=== PATIENT | female | born 1930 | race Caucasian/White ===

== ENCOUNTER → 2016-12-02 | Outpatient (CLI) | payer OTHER ==
[~2016-12-02] MED LIST: ACET325T96 PO; AMLO-114 PO; ASPI-461 PO; ASPI81TA28 PO; CARB1SOL OPR; CRFUDL PO; DOCU-94 PO; FERR1TAB13 PO; FERR1TAB24 PO; FERR325T5 PO; LEVO125T72 PO; LISI40TA PO; LSN20 PO; MIRT15TA PO; MIRT1TAB27 PO; MOML PO; PANT40TA PO; POLY335019 PO; POLY99.02 OPR; POTA10CA28 PO; PRT40 PO; PRVC40 PO; PSYL55.43 PO; SACC250C PO; SENN-61 PO; SENN1TAB65 PO; VENL75TA4 PO; VNCLRX PO; VNCS125 PO; [UNRECOGNIZED DRUG - CODE] PO
--- NOTE | 2016-12-09 11:27 | CODING QUERY NO DIAGNOSIS ---
TREATMENT RENDERED WITHOUT A DIAGNOSIS : 1930 To promote full compliance with coding requirements relating to patient care, physician participation is requested in all cases of label coder uncertainty. Please assist us with providing a diagnosis/symptom for the test(s) below: A diagnosis/symptom was not documented on your Order. A valid diagnosis/symptom is required to bill all insurances. Please remember that we are unable to code a diagnosis of rule out, probable, possible, questionable, or suspected. Tests that require a diagnosis: * INFLUENZA VIR A OR B DOS: 12/02/16 DIAGNOSIS: Provider Signature: Date: Thank you Vanessa Saldaña Health Information Management Once completed, please kindly fax back to [phone] For questions please call [phone]
== END | disposition home or self-care (01) ==
LOC: C.LABOUTLO 11:54
PROVIDERS: ATTEND Internal Medicine Critical Care Medicine
DX: J11.1 Influenza due to unidentified influenza virus with other respiratory manifestations (principal)

== ENCOUNTER 2017-04-30 01:52 | Emergency (ER) | payer OTHER ==
[~2017-04-30] VITALS: Ht 170.2 cm; Wt 74.7 kg
[~2017-04-30 01:52] MED LIST changes: -ACET325T96 PO; -AMLO-114 PO; -ASPI81TA28 PO; -CARB1SOL OPR; -DOCU-94 PO; -FERR1TAB13 PO; -FERR325T5 PO; -LISI40TA PO; -MIRT1TAB27 PO; -MOML PO; -PANT40TA PO; -POLY335019 PO; -POLY99.02 OPR; -SENN-61 PO; -SENN1TAB65 PO; -VNCLRX PO; -[UNRECOGNIZED DRUG - CODE] PO
[2017-04-30 01:55] VITALS: TEMP 36.5; Ht 170.2 cm; Wt 74.7 kg
[2017-04-30] MEDS ORDERED: LIDOCAINE/EPINEPH/TETRACAINE 1 EA SYR ONE ×2 (02:18→02:19)
--- NOTE | 2017-04-30 02:20 | EMERGENCY ROOM VISIT NOTE ---
History Report prepared by Yvrose: Dipak Tavarez Under the Supervision of: Dr. Miroslava Gamboa M.D. First contact with patient: :58 Chief Complaint: FALL Stated Complaint: FALL History of Present Illness The patient is an 86 year old female who presents to the Emergency Room with an acute fall that occurred at approximately 0130 this morning. The patient resides at [facility] with her . The patient's son received a call that she fell around 0130 this morning. The cause of the fall is unknown at this time. The patient has a skin tear on the right griffin from the fall. She does not believe that she hit her head and did not lose consciousness. The patient is not on blood thinners other than baby aspirin. Source of History: patient, family Onset: 0130 this morning Position: other (global) Quality: other (fall) Timing: other (acute) Associated Symptoms: No LOC Review of Systems See HPI for pertinent positives & negatives. A total of 10 systems reviewed and were otherwise negative. Past Medical & Surgical Medical Problems: (1) Clostridium difficile colitis (2) GI bleed Family History Patient reports no known family medical history. Social History Smoking Status: Former Smoker Alcohol Use: none Drug Use: none Marital Status: Housing Status: lives with significant other, senior care Occupation Status: retired Current/Historical Medications Scheduled Amlodipine (Norvasc), 10 MG PO QPM Aspirin (Aspirin), 81 MG PO QAM Carboxymethylcellulose Sodium (Refresh), 1 DROP OPR TID Ferrous Sulfate (Kp Ferrous Sulfate), 325 MG PO QDB Levothyroxine Sodium (Synthroid), 125 MCG PO QAM Lisinopril (Zestril), 40 MG PO DAILY Mirtazapine (Remeron), 15 MG PO HS Pantoprazole (Protonix), 40 MG PO BID Polyethylene Glycol 3350 (Miralax), 17 GM PO DAILY Polyvinyl Alcohol (Liquitears), 1 DROP OPR BID Pravastatin Sod (Pravastatin Sodium), 40 MG PO DAILY Probiotic Product (Ana Paula-Bid Probiotic), 1 TAB PO BID Senna (Senokot), 8.6 MG PO BID Vancomycin HCl (Vancomycin HCl), 5 ML PO Q2D Venlafaxine Hcl (Effexor), 150 MG PO QAM Allergies Coded Allergies: No Known Allergies (Unverified , 08/19/15) PER [facility] Physical Exam Vital Signs Date Time Temp Pulse Resp B/P (MAP) Pulse Ox O2 Delivery O2 Flow Rate FiO2 04/30/17 04:58 94 20 152/94 95 04/30/17 03:29 85 16 162/93 95 Room Air 04/30/17 01:55 36.5 81 16 170/112 97 Room Air Physical Exam Vital signs reviewed. General: Well-appearing female, in no significant distress. HEENT: No scleral icterus, PERRLA, neck supple. Head is atraumatic. Cardiovascular: Regular rate and rhythm, no extra sounds. Pulmonary: Clear to auscultation bilaterally, normal work of breathing. Abdomen: Soft, nontender, nondistended, positive bowel sounds. Musculoskeletal: There is a 10 cm U-shaped skin tear to the right griffin with surrounding ecchymosis, no active bleeding, full range of motion of the bilateral lower extremities. Neurologic: Patient awake alert and answers most questions however is pleasantly confused. This is her baseline. Skin: Warm, dry, no rash Medical Decision & Procedures ER Provider Diagnostic Interpretation: X-ray results as stated below per interpretation by me. Tib/Fib 2 Views Right No bony fracture, degenerative changes. Radiology results as stated below per my review and radiologist interpretation: CT Head: No intracranial hemorrhage, mass effect or calvarial fracture. Ventricles are unchanged in size and remain midline. Chronic and involutional changes again noted. Visualized paranasal sinuses, mastoid and orbits are within limits. Radiologist: Bc Cueto MD, from [facility][Note 3]. Medications Administered Medications (Trade) Dose Ordered Sig/Ned Route Start Time Stop Time Status Last Admin Dose Admin Tetracaine/ Epinephrine/ Lidocaine (L.e.t. Gel 4%/ 1:100/0.5%) 1 ea STK-MED ONCE .ROUTE 04/30/17 02:18 04/30/17 02:19 DC 04/30/17 02:29 1 EA Tetracaine/ Epinephrine/ Lidocaine (L.e.t. Gel 4%/ 1:100/0.5%) 1 ea STK-MED ONCE .ROUTE 04/30/17 02:19 04/30/17 02:20 DC 04/30/17 02:29 1 EA Procedure Laceration Repair The wound on her right griffin was anesthetized with LET gel. Wound was irrigated. Approximated with Dermabond and steri-strips. Dry dressing applied. The patient' s tetanus is up to date. ED Course 0212: Past medical records reviewed. The patient was evaluated in room A10. A complete history and physical examination was performed. 0400: Reassessed the patient. Discussed the discharge instructions with her. She verbalized understanding. The patient will be discharged when transportation arrives. Medical Decision Differential Diagnosis: Intracranial injury, cervical spine injury, intrathoracic injury, intra- abdominal injury, musculoskeletal injury. Blood Pressure Screening: Patient was found to have a slightly elevated blood pressure due to circumstances. I do not believe that the patient requires hypertension monitoring. Medication Reconciliation: I attest that I have personally reviewed the patient' s current medication list. This patient was evaluated and appeared to be in no significant distress. Patient's physical examination is significant for a large skin tear to the right lower extremity. An x-ray was obtained at the family's request, there is no visualized foreign body or fracture. Head CT is negative for acute intracranial abnormality. Patient's tetanus status is up-to-date. The wound was irrigated with normal saline solution and approximated with Dermabond and Steri-Strips. Please see my procedure note above. The patient's was given wound care instructions. They will return to the nursing facility for further care and see their primary care physician this week for reevaluation. They will return to the ER for worsening of symptoms or any medical concerns. Impression Primary Impression: Skin tear of right lower leg without complication Scribe Attestation The scribe's documentation has been prepared under my direction and personally reviewed by me in its entirety. I confirm that the note above accurately reflects all work, treatment, procedures, and medical decision making performed by me. Departure Information Dispostion Home / Self-Care Referrals [facility] (PCP) Forms HOME CARE DOCUMENTATION FORM, IMPORTANT VISIT INFORMATION Patient Instructions My [facility] Additional Instructions Diagnosis: Right leg skin tear DO NOT apply ointments Read DermaBond handout. No water on the area for 8 hrs then no soaking until the glue falls off. The glue will fall off on its own - do not pick at it. Once the glue falls off use antibiotic ointment on the area until fully healed. Ice and elevate for swelling and pain. Ibuprofen 600 mg and Tylenol 650 mg every 6 hrs for pain (Maximum 3000 mg Tylenol in 24 hr period). Return for any signs of infection (increasing redness, swelling, drainage, fever). Keep covered when in sun until fully healed then SPF 50 or higher for one year. Keep wound covered. Have recheck by PCP this week for reevaluation. Return to the ED for worsening of symptoms or any medical concerns. Problem Qualifiers Primary Impression: Skin tear of right lower leg without complication Encounter type: initial encounter Qualified Codes: S81.811A - Laceration without foreign body, right lower leg, initial encounter
[2017-04-30] MEDS ORDERED: AMLO-114 PO (03:26)
[2017-04-30] MEDS ORDERED: FERR1TAB13 PO (03:29)
[2017-04-30] MEDS ORDERED: LISI40TA PO (03:31)
[2017-04-30] MEDS ORDERED: POLY99.02 OPR (03:31)
[2017-04-30] MEDS ORDERED: PANT40TA PO (03:33)
[2017-04-30] MEDS ORDERED: POLY335019 PO (03:35)
[2017-04-30] MEDS ORDERED: CARB1SOL OPR (03:37)
[2017-04-30] MEDS ORDERED: [UNRECOGNIZED DRUG - CODE] PO (03:39)
[2017-04-30] MEDS ORDERED: SENN-61 PO (03:40)
[2017-04-30] MEDS ORDERED: VNCLRX PO (03:43)
[2017-04-30 04:58] VITALS: BP 152/94; PULSE 94; O2SAT 95
--- NOTE | 2017-04-30 06:11 | DIAGNOSTIC IMAGING REPORT ---
HEAD CT NONCONTRAST CT DOSE: 614.27 mGy.cm HISTORY: Trauma. Mental status change. fall TECHNIQUE: Multiaxial CT images of the head were performed without the use of intravenous contrast. Comparison: 01/24/2016 Findings: The paranasal sinuses and mastoid air cells are clear. Mild chronic ventricular prominence. Generalized atrophy and considerable chronic small vessel change. No acute intracranial hemorrhage. Impression: Chronic and age-related change. No acute process. Electronically signed by: Celestine Calvin M.D. 04/30/2017 6:10 AM Dictated Date/Time: 04/30/2017 6:09 AM
--- NOTE | 2017-04-30 06:14 | DIAGNOSTIC IMAGING REPORT ---
RIGHT TIBIA/FIBULA 2 VIEWS ROUTINE CLINICAL HISTORY: R tib fib trauma Right COMPARISON: None. DISCUSSION: Total right knee replacement. Pretibial soft tissue edema. No acute bony abnormality. Mild generalized soft tissue edema. IMPRESSION: Focal soft tissue disruption anterior to the mid tibia. No acute bony abnormality. Electronically signed by: Celestine Calvin M.D. 04/30/2017 6:13 AM Dictated Date/Time: 04/30/2017 6:12 AM
== END 2017-04-30 05:00 | disposition home or self-care (01) ==
LOC: EDBD 01:52 → C.EDA 01:53
DX: S81.801A Unspecified open wound, right lower leg, initial encounter (principal); W19.XXXA Unspecified fall, initial encounter; Z87.19 Personal history of other diseases of the digestive system; Z86.19 Personal history of other infectious and parasitic diseases; Z87.891 Personal history of nicotine dependence; Z79.82 Long term (current) use of aspirin; Z79.899 Other long term (current) drug therapy

== ENCOUNTER → 2017-06-15 | Outpatient (CLI) | payer OTHER ==
[~2017-06-15] MED LIST changes: +ACET325T96 PO; +AMLO-114 PO; +ASPI81TA28 PO; +CARB1SOL OPR; -CRFUDL PO; +DOCU-94 PO; +FERR1TAB13 PO; -FERR1TAB24 PO; +FERR325T5 PO; +LISI40TA PO; -LSN20 PO; +MIRT1TAB27 PO; +MOML PO; +PANT40TA PO; +POLY335019 PO; +POLY99.02 OPR; -POTA10CA28 PO; -PRT40 PO; -PSYL55.43 PO; -SACC250C PO; +SENN-61 PO; +SENN1TAB65 PO; +VNCLRX PO; -VNCS125 PO; +[UNRECOGNIZED DRUG - CODE] PO
--- NOTE | 2017-06-15 14:04 | MAMMOGRAPHY REPORT ---
BILATERAL DIGITAL DIAGNOSTIC MAMMOGRAM TOMOSYNTHESIS WITH CAD AND TARGETED BILATERAL ULTRASOUND: 06/15 CLINICAL HISTORY: Per the patient's [id number], a nurse at the patient's [facility] felt a lef t breast lump. The patient does not clearly feel a lump. TECHNIQUE: Breast tomosynthesis in addition to standard 2D mammography was performed. Current study was also evaluated with a Computer Aided Detection (CAD) system. Bilateral CC and MLO 2-D and tomosy nthesis images were obtained. COMPARISON: Comparison is made to exam dated: 05/03/2008 mammogram. BREAST COMPOSITION: There are scattered areas of fibroglandular density in both breasts. FINDINGS: Mammograms of the right breast demonstrate a spiculated mass in the right medial breast at approximately 2 to 3:00, which measures approximately 1.4 x 1.9 cm. In the left breast, there is ar eola skin thickening as well as a focal asymmetry and associated architectural distortion in the left subareolar breast. The asymmetry is difficult to measure but measures at least 2.2 x 1.1 cm in size . Additionally, there is a possible round partially circumscribed and partially obscured 6 mm mass i n the left subareolar breast. The remainder of both breast imaging no suspicious masses, calcificati ons, or areas of architectural distortion. Bilateral benign-appearing calcifications are not signifi cantly changed. Morphologically normal intramammary lymph nodes in the right breast are stable. Targeted ultrasound was performed of the area of the mammographic mass in the right breast. In the r ight breast at 2:00, 6 cm from the nipple, there is an ill-defined irregular hypoechoic mass with a s urrounding hyperechoic halo, measuring approximately 1.3 x 0.9 x 0.9 cm. This corresponds with the m ammographic mass and is highly suspicious for malignancy. Recommend ultrasound guided core needle bi opsy for further evaluation. Targeted ultrasound was performed of the left subareolar region in the region of the mammographic fin dings. There is thickening of the left areola. The areolar thickening makes it difficult to evaluat e the underlying breast parenchyma as it results in significant posterior shadowing, however, there i s a probable ill-defined hypoechoic mass in the left subareolar breast which measures 1.8 x 1.1 cm. This likely corresponds with the mammographic focal asymmetry and is highly suspicious. These finding s likely correspond with the palpable lump felt by the patient's nurse. A round circumscribed hypoec hoic 6 x 5 x 5 mm mass is also seen within the left 6:00 subareolar breast, which is felt to correspo nd with the circumscribed mammographic mass. Targeted ultrasound of the left axillary region demonst rates morphologically normal axillary lymph nodes, without evidence of axillary adenopathy. IMPRESSION: ACR BI-RADS CATEGORY 5: HIGHLY SUGGESTIVE OF MALIGNANCY, TARGETED ULTRASOUND ACR BI-RADS CATEGORY 5: HIGHLY SUGGESTIVE OF MALIGNANCY 1. Spiculated irregular 1.3 cm mass in the right 2:00 breast. The mass is highly suspicious and ult rasound-guided core needle biopsy is recommended for further evaluation. 2. Left areolar thickening with a probable hypoechoic 1.8 cm hypoechoic mass in the left subareolar breast. These findings likely correspond with the lump felt by the patient's nurse. Findings are hi ghly suspicious for malignancy and ultrasound-guided core needle biopsy is recommended for further ev aluation. No evidence of left axillary adenopathy. The patient and her [id number] have been verbally notified of the results. They would like to s peak with Dr. Tamayo before deciding if they will undergo biopsy. Approximately 10% of breast cancers are not detected with mammography. A negative mammographic report should not delay biopsy if a clinically suggestive mass is present. Leela Paulino M.D. ah/:06/15/2017 13:33:08 Mailroom Supervisor: Odessa BOOKER(Shar)(M), [facility] letter sent: Abnormal 4/5 BI-RADS Code: ACR BI-RADS Category 5: Highly Suggestive Of Malignancy Ultrasound BI-RADS: ACR BI-RAD S Category 5: Highly Suggestive Of Malignancy
== END | disposition home or self-care (01) ==
LOC: C.MAMM 11:07
PROVIDERS: ATTEND Internal Medicine Critical Care Medicine
DX: N63 Unspecified lump in breast (principal)

== ENCOUNTER 2017-07-03 05:59 | Emergency (ER) | payer OTHER ==
[~2017-07-03 05:59] MED LIST changes: -ACET325T96 PO; -ASPI81TA28 PO; -DOCU-94 PO; -FERR325T5 PO; -MIRT1TAB27 PO; -MOML PO; -SENN1TAB65 PO
[2017-07-03 06:03] VITALS: TEMP 36.8
[2017-07-03] MEDS ORDERED: ASPI81TA28 PO (06:43)
[2017-07-03] MEDS ORDERED: FERR325T5 PO (06:44)
[2017-07-03] MEDS ORDERED: SENN1TAB65 PO (06:48)
[2017-07-03] MEDS ORDERED: MIRT1TAB27 PO (06:49)
[2017-07-03] MEDS ORDERED: ACET325T96 PO (06:51)
[2017-07-03] MEDS ORDERED: DOCU-94 PO (06:52)
[2017-07-03] MEDS ORDERED: MOML PO (06:52)
--- NOTE | 2017-07-03 07:05 | EMERGENCY ROOM VISIT NOTE ---
History Report prepared by Yvrose: Yolanda Brooks Under the Supervision of: Dr. Rachel Alcocer D.O. First contact with patient: 06:28 Chief Complaint: FALL Stated Complaint: FALL,LACERATION History of Present Illness The patient is a 86 year old female who presents to the Emergency Room with complaints of an episode of a fall occurring [employer]. The patient was sent to the ED by ambulance from a halfway after an unwitnessed fall occurring this morning. She was found by staff on the ground. They noted the patient to be in her usual state of mentation without any complaints. She had an obvious laceration to the right forehead above her eyebrow. The patient's son is at the bedside to give further history. He states that this is the patient's third fall in the last several months. She is prone to skin tears, otherwise he denies any significant trauma from her previous falls. The patient typically uses a walker so their suspicion is that she is waking up in the middle of the night to go to the bathroom without using her walker because all of these falls have occurred at night. Son states that the patient seems to be at her baseline right now cognitively. The patient has no complaints and does not remember the fall. She takes a daily aspirin otherwise no other anticoagulation. Pt denies headache, chest pain, shortness of breath, nausea, vomiting, diarrhea, pain with urination, and melena. The HPI is limited secondary to the patient's dementia. Source of History: patient, family (son), halfway notes History Limited By: dementia Onset: [employer] Position: other (global) Timing: other (episode) Modifying Factors (Worsening): other (ambulating w/o walker) Associated Symptoms: No headache, No chest pain, No SOB, No nausea, No vomiting, No melena, No diarrhea, No urinary symptoms Note: Pt has laceration above right eyebrow. Review of Systems The ROS is limited secondary to the patient's dementia. Past Medical & Surgical Medical Problems: (1) Clostridium difficile colitis (2) GI bleed Family History Patient reports no known family medical history. Social History Smoking Status: Former Smoker Alcohol Use: none Drug Use: none Marital Status: Housing Status: lives with significant other, halfway Occupation Status: retired Current/Historical Medications Scheduled Amlodipine (Norvasc), 10 MG PO QPM Aspirin (Aspirin Ec), 81 MG PO QAM Carboxymethylcellulose Sodium (Refresh), 1 DROP OPR TID Ferrous Sulfate (Ferrous Sulfate), 325 MG PO QAM Levothyroxine Sodium (Synthroid), 125 MCG PO QAM Lisinopril (Zestril), 40 MG PO DAILY Mirtazapine (Mirtazapine), 7.5 MG PO HS Pantoprazole (Protonix), 40 MG PO BID Polyethylene Glycol 3350 (Miralax), 17 GM PO DAILY Polyvinyl Alcohol (Liquitears), 1 DROP OPR BID Pravastatin Sod (Pravastatin Sodium), 40 MG PO DAILY Probiotic Product (Ana Paula-Bid Probiotic), 1 TAB PO BID Sennosides-Docusate Sodium (Senna Plus), 1 TAB PO BID Vancomycin HCl (Vancomycin HCl), 5 ML PO Q2D Venlafaxine Hcl (Effexor), 150 MG PO QAM Scheduled PRN Acetaminophen Tab (Tylenol), 650 MG PO Q4 PRN for Pain Acetaminophen Tab (Tylenol), 650 MG PO Q4 PRN for Fever Docusate Sodium (Colace), 100 MG PO BID PRN for Constipation Magnesium Hydroxide (Milk Of Magnesia), 30 ML PO DAILY PRN for Constipation Allergies Coded Allergies: No Known Allergies (Unverified , 07/03/17) PER [facility] Physical Exam Vital Signs Date Time Temp Pulse Resp B/P (MAP) Pulse Ox O2 Delivery O2 Flow Rate FiO2 07/03/17 10:16 82 18 138/82 98 Room Air 07/03/17 07:44 87 18 174/104 100 Room Air 07/03/17 06:03 36.8 75 20 178/107 98 Room Air Physical Exam GENERAL: alert, well appearing, well nourished, no distress, non-toxic HEAD: She has a 2cm laceration to the right supraorbital region just above her eyebrow. EYE EXAM: normal conjunctiva, PERRL and EOM's grossly intact OROPHARYNX: no exudate, no erythema, lips, buccal mucosa, and tongue normal and mucous membranes are moist NECK: supple, no nuchal rigidity, no adenopathy, non-tender LUNGS: Clear to auscultation. Normal chest wall mechanics HEART: no murmurs, S1 normal and S2 normal CHEST: No rib tenderness. ABDOMEN: abdomen soft, non-tender, normo-active bowel sounds, no masses, no rebound or guarding. BACK: Back is symmetrical on inspection and there is no deformity, no midline tenderness, no CVA tenderness. PELVIS: Stable. SKIN: no rashes and no bruising UPPER EXTREMITIES: upper extremities are grossly normal. LOWER EXTREMITIES: No pitting edema. Good pulses. She has a contusion to the medial aspect of the left knee, FROM which she states is painful. No joint effusion, no other bony deformities. NEURO EXAM: Pleasantly confused, recognizes son, knows she is in the hospital but does not recall recent events. Cranial nerves II-XII grossly intact, normal speech, no gross weakness of arms, no gross weakness of legs. Medical Decision & Procedures ER Provider Diagnostic Interpretation: Radiology results have been interpreted by the radiologist and reviewed by me. PELVIS 1 OR 2 VIEW ROUTINE CLINICAL HISTORY: trauma. Fall. Pelvic pain. COMPARISON STUDY: None. FINDINGS: No fracture or dislocation within the pelvis or hips. The sacrum is intact. Mild degenerative changes within the bilateral hips and sacroiliac joints. The bones are osteopenic. Soft tissues are unremarkable. IMPRESSION: No fracture or dislocation within the pelvis or hips. Electronically signed by: Khanh Pollard M.D. 07/03/2017 8:34 AM Dictated Date/Time: 07/03/2017 8:32 AM LEFT KNEE 2 VIEWS HISTORY: Trauma. Left knee pain. COMPARISON: None. FINDINGS: There is no fracture or dislocation. Anterior soft tissue swelling. No significant knee effusion. Left total knee arthroplasty. The hardware is intact. IMPRESSION: No fractures. Anterior soft tissue swelling. Electronically signed by: Khanh Pollard M.D. 07/03/2017 8:32 AM Dictated Date/Time: 07/03/2017 8:[address] HEAD WITHOUT CONTRAST (CT) CLINICAL HISTORY: trauma DEMENTIA, PATIENT FOUND ON FLOOR. COMPARISON STUDY: 04/30/2017 TECHNIQUE: Axial CT of the brain is performed from the vertex to the skull base. IV contrast was not administered for this examination. A dose lowering technique was utilized adhering to the principles of ALARA. CT DOSE: FINDINGS: No intra or extra-axial mass lesions are visualized. There is no CT evidence of acute cortical infarction. There is no evidence of midline shift. There is no acute hemorrhage. No calvarial fractures are visualized. There are extensive patchy white matter hypodensities likely on a small vessel basis. There is moderately extensive atrophy. There is no evidence of pathologic ventricular dilatation. There is a giant cisterna magna. There is no evidence of acute sinusitis IMPRESSION: No acute intracranial findings Electronically signed by: Eugene Hoffman M.D. 07/03/2017 8:02 AM Dictated Date/Time: 07/03/2017 8:01 AM CHEST 1 VW FRONT-NOT PORTABLE CLINICAL HISTORY: 86 years-old Female presenting with trauma. TECHNIQUE: Portable upright AP view of the chest was obtained. COMPARISON: 01/24/2016. FINDINGS: Atherosclerosis of aortic arch. Significant tortuosity of the descending thoracic aorta. Apparent double density posterior to the heart could represent left atrial enlargement versus hiatal hernia. Minimal left basilar opacity. No large effusion or pneumothorax. Scoliotic curvature of the spine. No displaced rib fracture evident. Upper abdomen normal. IMPRESSION: 1. Minimal left basilar opacity likely atelectasis. 2. Double density posterior to the heart could represent left atrial enlargement versus hiatal hernia. Notably, hilar hernia was not present on chest CT from 01/25/2016. 3. Significant tortuosity of the descending thoracic aorta. Electronically signed by: Rolf Morales M.D. 07/03/2017 8:34 AM Dictated Date/Time: 07/03/2017 8:[address] DOSE: 1211.72 mGy.cm HISTORY: trauma TECHNIQUE: Multiaxial CT images of the cervical spine were performed and reformatted in the sagittal and coronal plane without the use of contrast. A dose lowering technique was utilized adhering to the principles of ALARA. COMPARISON: None. FINDINGS: No fractures. No subluxation. Prevertebral soft tissues and the C1-C2 interval are intact. No pneumothorax. Moderate degenerative disease seen from C4 through C7. IMPRESSION: No fractures within the cervical spine. Electronically signed by: Khanh Pollard M.D. 07/03/2017 8:07 AM Dictated Date/Time: 07/03/2017 8:01 AM Medications Administered Medications (Trade) Dose Ordered Sig/Ned Route Start Time Stop Time Status Last Admin Dose Admin Diphtheria/ Pertussis/Tetanus Vacc (Adacel Inj) 0.5 ml ONCE ONCE IM. 07/03/17 10:15 07/03/17 10:16 DC 07/03/17 10:15 0.5 ML Procedure Location: Right supraorbital region just above the eyebrow Total length: 2 cm Complexity: simple Verbal consent was obtained after the risks and benefits were explained, including but not limited to bleeding, scarring, infection, pain, and bone/joint /nerve damage. At this time, the risks of the procedure are less than the risks of NOT performing the procedure. A time out was taken and the correct patient and site identified. The skin was prepped with betadine. The target area was anesthetized with 4 ml of 1% lidocaine with epinephrine. Copious irrigation was performed using NSS. The skin was re-prepped with betadine and a sterile field set. The wound was explored for foreign bodies and none found. Examination revealed no injury to deep structures such as tendons, bone, or significant blood vessels. Debridement was not performed. The wound edges were approximated using 4, 5-0 simple interrupted nylon sutures. Hemostasis and excellent approximation was achieved. Antibacterial ointment and a sterile dressing applied. Detailed wound care instructions and signs and symptoms of infection reviewed with the patient and her family. No complications and the patient tolerated the procedure well. ED Course 0628: The patient was evaluated in room A3. A complete history and physical exam was performed. 0848: I reassessed the patient at this time. She is feeling better and resting comfortably. I discussed the results and treatment plan with the patient and her family. I answered all pertaining questions that they had. They expressed understanding and verbalized agreement. 0900: Lidocaine/Epinephrine 4 ml Inj 0906: At this time I performed a laceration repair. Please see the procedure note above for further evaluation. The patient will be discharged home after a tetanus shot. 1015: Adacel 0.5 ml IM Medical Decision Differential diagnoses include major intracranial, cervical, spinal, thoracic, abdominal, pelvic and neurologic injury. Fracture, contusion, sprain, strain, laceration, abrasions included as well. Patient well-appearing here, no evidence of acute trauma and doubt any additional occult traumatic injury. Physical exam otherwise reassuring, patient able to ambulate with her walker in her usual manner. Laceration above the right eyebrow repaired the patient tolerated procedure well. Tetanus updated. Patient on aspirin daily no other antiplatelet or anticoagulation therapy. Patient with history of dementia and very repetitive here which is her usual baseline according to the son. Discussed possible additional mechanisms for limiting patient's ambulation at night when she is more fall risk. These were also typed on the patient discharge instructions. Instructions given for symptoms to watch and return for, discussed with son at bedside. Feel chest x-ray findings represent atelectasis patient with no other signs or symptoms to suggest pneumonia. Medication Reconcilliation Current Medication List: was personally reviewed by me Blood Pressure Screening Patient's blood pressure: Elevated blood pressure Blood pressure disposition: Elevated BP felt to be situational Impression Primary Impression: Fall Additional Impressions: Laceration Contusion CHI (closed head injury) Scribe Attestation The scribe's documentation has been prepared under my direction and personally reviewed by me in its entirety. I confirm that the note above accurately reflects all work, treatment, procedures, and medical decision making performed by me. Departure Information Dispostion Home / Self-Care Referrals Chris Logan M.D. (PCP) Forms HOME CARE DOCUMENTATION FORM, IMPORTANT VISIT INFORMATION Patient Instructions My [facility] Additional Instructions You have for stitches and the laceration on your head. These need to be removed in 5-7 days. These make a note the your tetanus shot was updated. Please do not get out of bed without using her walker without assistance. Please take your medications as prescribed. Do not drink alcohol. Please consider using siderails, a fall mat, or bed alarm to help prevent any additional falls. If you have any worsening pain, feel unstable when you walk, have worsening headaches, vomiting, dizziness, vision changes, fevers, redness or drainage from around the laceration, or have any other new concerns, please return the emergency room. Problem Qualifiers Primary Impression: Fall Encounter type: initial encounter Qualified Codes: W19.XXXA - Unspecified fall, initial encounter Additional Impressions: Contusion Encounter type: initial encounter Contusion area: knee Laterality: left Qualified Codes: S80.02XA - Contusion of left knee, initial encounter CHI (closed head injury) Encounter type: initial encounter Qualified Codes: S09.90XA - Unspecified injury of head, initial encounter
--- NOTE | 2017-07-03 08:03 | DIAGNOSTIC IMAGING REPORT ---
CT HEAD WITHOUT CONTRAST (CT) CLINICAL HISTORY: trauma DEMENTIA, PATIENT FOUND ON FLOOR. COMPARISON STUDY: 04/30/2017 TECHNIQUE: Axial CT of the brain is performed from the vertex to the skull base. IV contrast was not administered for this examination. A dose lowering technique was utilized adhering to the principles of ALARA. CT DOSE: FINDINGS: No intra or extra-axial mass lesions are visualized. There is no CT evidence of acute cortical infarction. There is no evidence of midline shift. There is no acute hemorrhage. No calvarial fractures are visualized. There are extensive patchy white matter hypodensities likely on a small vessel basis. There is moderately extensive atrophy. There is no evidence of pathologic ventricular dilatation. There is a giant cisterna magna. There is no evidence of acute sinusitis IMPRESSION: No acute intracranial findings Electronically signed by: Eugene Hoffman M.D. 07/03/2017 8:02 AM Dictated Date/Time: 07/03/2017 8:01 AM
--- NOTE | 2017-07-03 08:08 | DIAGNOSTIC IMAGING REPORT ---
CERVICAL SPINE CT CT DOSE: 1211.72 mGy.cm HISTORY: trauma TECHNIQUE: Multiaxial CT images of the cervical spine were performed and reformatted in the sagittal and coronal plane without the use of contrast. A dose lowering technique was utilized adhering to the principles of ALARA. COMPARISON: None. FINDINGS: No fractures. No subluxation. Prevertebral soft tissues and the C1-C2 interval are intact. No pneumothorax. Moderate degenerative disease seen from C4 through C7. IMPRESSION: No fractures within the cervical spine. Electronically signed by: Khanh Pollard M.D. 07/03/2017 8:07 AM Dictated Date/Time: 07/03/2017 8:01 AM
--- NOTE | 2017-07-03 08:33 | DIAGNOSTIC IMAGING REPORT ---
LEFT KNEE 2 VIEWS HISTORY: Trauma. Left knee pain. COMPARISON: None. FINDINGS: There is no fracture or dislocation. Anterior soft tissue swelling. No significant knee effusion. Left total knee arthroplasty. The hardware is intact. IMPRESSION: No fractures. Anterior soft tissue swelling. Electronically signed by: Khanh Pollard M.D. 07/03/2017 8:32 AM Dictated Date/Time: 07/03/2017 8:31 AM
--- NOTE | 2017-07-03 08:35 | DIAGNOSTIC IMAGING REPORT ---
PELVIS 1 OR 2 VIEW ROUTINE CLINICAL HISTORY: trauma. Fall. Pelvic pain. COMPARISON STUDY: None. FINDINGS: No fracture or dislocation within the pelvis or hips. The sacrum is intact. Mild degenerative changes within the bilateral hips and sacroiliac joints. The bones are osteopenic. Soft tissues are unremarkable. IMPRESSION: No fracture or dislocation within the pelvis or hips. Electronically signed by: Khanh Pollard M.D. 07/03/2017 8:34 AM Dictated Date/Time: 07/03/2017 8:32 AM
--- NOTE | 2017-07-03 08:36 | DIAGNOSTIC IMAGING REPORT ---
CHEST 1 VW FRONT-NOT PORTABLE CLINICAL HISTORY: 86 years-old Female presenting with trauma. TECHNIQUE: Portable upright AP view of the chest was obtained. COMPARISON: 01/24/2016. FINDINGS: Atherosclerosis of aortic arch. Significant tortuosity of the descending thoracic aorta. Apparent double density posterior to the heart could represent left atrial enlargement versus hiatal hernia. Minimal left basilar opacity. No large effusion or pneumothorax. Scoliotic curvature of the spine. No displaced rib fracture evident. Upper abdomen normal. IMPRESSION: 1. Minimal left basilar opacity likely atelectasis. 2. Double density posterior to the heart could represent left atrial enlargement versus hiatal hernia. Notably, hilar hernia was not present on chest CT from 01/25/2016. 3. Significant tortuosity of the descending thoracic aorta. Electronically signed by: Rofl Morales M.D. 07/03/2017 8:34 AM Dictated Date/Time: 07/03/2017 8:32 AM
[2017-07-03] MEDS ORDERED: XYLOCAINE 1%/SOD BICARB 20 ML VIAL INFIL ONE (08:49)
[2017-07-03] MEDS ORDERED: LIDOCAINE/EPINEPHRINE 1% 20 ML VIAL INFIL ONE (09:00)
[2017-07-03] MEDS ORDERED: DIPHTHERIA/TETANUS/PERTUSSIS 0.5 ML SYR/VIAL IM. ONE (10:15)
[2017-07-03 10:16] VITALS: BP 138/82; PULSE 82; O2SAT 98
== END 2017-07-03 10:51 | disposition home or self-care (01) ==
LOC: EDBD 05:59 → C.EDA 06:02
DX: S01.81XA Laceration without foreign body of other part of head, initial encounter (principal); W19.XXXA Unspecified fall, initial encounter; Y92.199 Unspecified place in other specified residential institution as the place of occurrence of the external cause; F03.90 Unspecified dementia, unspecified severity, without behavioral disturbance, psychotic disturbance, mood disturbance, and anxiety; Z23 Encounter for immunization; Z91.81 History of falling; Z79.82 Long term (current) use of aspirin; Z87.891 Personal history of nicotine dependence; Z79.899 Other long term (current) drug therapy